=== PATIENT | male | born 1970 | race Caucasian/White ===

== ENCOUNTER → 2018-03-28 01:24 | Outpatient (CLI) | payer BC, SELFPAY ==
--- NOTE | 2018-03-28 07:58 | DI.REPORT_ITS ---
SYMPTOM/DIAGNOSIS: MUSCLE WEAKNESS OF EXTREMITY, M62.81, HEADACHE, EARACHE, FATIGUE BRAIN MRI: Routine noncontrast examination was performed. Comparison MRI is 05/20/05. Comparison CT scan is 02/01/15. There is normal signal in the brain parenchyma. No evidence of an acute hemorrhage or infarct is seen. The ventricles are intact. The basilar cisterns are patent. There is no acute midline shift or mass effect. No abnormal extra-axial fluid collections are seen. There is a flow void seen in the [place]. The visualized paranasal sinuses are clear. Note is again made of an empty sella. IMPRESSION: No acute intracranial process. No evidence of an intracranial mass, hemorrhage or infarct.
== END ==
PROVIDERS: PCP Family Medicine; Visit Provider Nurse Practitioner Family
DX: R51 Headache (principal); H92.09 Otalgia, unspecified ear; M62.81 Muscle weakness (generalized); R53.83 Other fatigue
CPT/HCPCS: 70551

== ENCOUNTER 2018-09-19 07:13 | Outpatient (CLI) | payer BC, SELFPAY ==
[2018-09-19 08:08] LABS: Abs Immature Grans 0.01 k/cumm (0.0-0.09); Absolute Basophil Count 0.04 k/cumm (0.0-0.2); Absolute Neutrophil Count 2.16 k/cumm (1.2-6.7); Eosinophils % 2.4; HCT 44.3 % (40.0-50.0); HGB 14.9 g/dL (13.5-17.5); Immature Grans % 0.2; Lymphocytes % 35.6; Mean Corp. HGB Concentration 33.6 g/dL (32.0-36.0); Mean Corpuscular Hemoglobin 28.3 pg (27.0-33.0); Mean Corpuscular Volume 84.2 fL (80-95); Mean Platelet Volume 10.2 fL (8.0-11.0); Monocytes % 9.5; Neutrophils % 51.3; Platelet Count 238 x1000/uL (130-400); RBC 5.26 m/cumm (4.50-6.00); RBC Distribution Width 13.2 % (11.8-14.1); White Blood Cell Count 4.21 k/cumm (4.4-10.8)
[2018-09-19 09:03] LABS: ALT 25 U/L (12-78); AST 16 U/L (15-37); Albumin 3.5 g/dL (3.4-5.0); Alkaline Phosphatase 54 U/L (46-116); Anion Gap 8.5 mmol/L (3-11); BUN 12 mg/dL (7-18); Bilirubin, Total 0.3 mg/dL (0.2-1.0); CO2 28.5 mmol/L (21.0-32.0); CREATININE 0.87 mg/dL (0.70-1.30); Chloride 106 mmol/L (98-107); Glucose 92 mg/dL (70-100); Potassium 4.3 mmol/L (3.5-5.1); Sodium 143 mmol/L (136-145)
== END 2018-09-19 07:33 ==
PROVIDERS: PCP Family Medicine; Visit Provider Internal Medicine Gastroenterology
DX: R19.7 Diarrhea, unspecified (principal)
CPT/HCPCS: 36415; 80053; 84153; 85025

== ENCOUNTER 2018-09-20 09:15 | Outpatient (REF) | payer BC, SELFPAY ==
[2018-09-21 11:35] LABS: Campylobacter PCR SEE COMMENTS; Salmonella PCR SEE COMMENTS; Shiga Toxin PCR SEE COMMENTS; Shigella/Enteroinvasive Ecoli SEE COMMENTS
== END 2018-09-20 09:35 ==
LOC: LBN 09:15
PROVIDERS: PCP Family Medicine; Visit Provider Internal Medicine Gastroenterology
DX: R19.7 Diarrhea, unspecified (principal)
CPT/HCPCS: 87329; 87505; 87324

== ENCOUNTER 2019-09-26 17:56 | Emergency (ER) | payer BC, SELFPAY ==
[2019-09-26 18:03] VITALS: BP 150/103; PULSE 96; RESP 18; TEMP 37.5; O2SAT 96
--- NOTE | 2019-09-26 18:04 | ED.GENADUL_ITS ---
Discharge Plan Disposition Patient Disposition: HOME Condition: Good Discharge Details Chief Complaint: RespSymp Clinical Impression: Influenza Primary Care Provider: Ozzie Santos ED Provider: Naye Pak Home Meds and New Rx's Prescriptions: New benzonatate [Tessalon Perles] 100 mg capsule 100 mg PO TID PRN (Reason: cough) Qty: 14 RF: 0 Continued finasteride 5 MG tablet 5 mg PO DAILY Qty: 90 RF: 4 tamsulosin [Flomax] 0.4 MG capsule 0.4 mg PO DAILY RF: 0 ranitidine HCl [Zantac Maximum Strength] 150 MG tablet 150 mg PO BID RF: 0 fluticasone propionate 16 GM spray,suspension 2 spry NS BID Qty: 3 RF: 12 acetaminophen [Tylenol Extra Strength] 500 MG tablet 1,000 mg PO PRN PRNRF: 0 omeprazole 40 MG capsule,delayed release(DR/EC) 40 mg PO .QD Qty: 20 RF: 0 Discharge Instructions Instructions: Influenza (ED) Additional Instructions: Encourage water intake. Tylenol and ibuprofen as needed for discomfort or fevers. Please take the Tessalon Perles as prescribed to help with cough. Please follow-up with primary care at the end of the week for reevaluation. If you develop difficulty breathing, shortness of breath, inability stay hydrated or other new/worsening symptoms please seek care urgently once again. Referrals: Ozzie Santos [Primary Care Provider] - Discharge Data Discharge Date/Time-TO BE ENTERED AT DEPARTURE: 09/26/19 19:55 Medical Decision Making Patient is a pleasant 49-year-old gentleman, coming by his , with chief complaint of sudden onset of URI symptoms. He reports that for the past 3 days, he has had cough, fevers, body aches. Endorses sore throat, congestion. No difficulty breathing or shortness of breath. Denies chest pain. He denies any GI upset. Endorses subjective fevers and chills. No recent travel. No known sick contacts. On exam, patient is resting comfortably. Appears well-hydrated. Lungs are clear, there is some mild posterior oropharynx erythema but no significant abnormality of the HEENT exam. His history is most consistent with influenza. Plan for rapid influenza testing. Patient was negative for the flu. However, symptoms very much suggest influenza. As he is out of window for treatment, is not otherwise immunocompromised, do not feel that further testing for this is appropriate. He is tolerating fluids well. Feel that he is safe for discharge. Lungs are clear on exam. Will give Tessalon Perles to help with cough and symptomatic managem ent. He was given strict return precautions. Encouraged water intake. Advise close follow-up with primary care. All his questions and concerns were addressed and significant with plan. HPI General Mode of arrival: ambulatory . Date/Time Provider Initiated Documentation: 09/26/19 18:04 . Limitations to Documentation: no limitations . Information obtained by: patient, family () and RN notes reviewed . History of Present Illness 49 year old M presents to the emergency department with the chief complaint of cough, body aches, fevers, described as moderate, with intensity rated at 4. Quality is described as aching, Patient reports no radiation. Patient started experiencing this day(s) (3) and it has been constant. No relieving factors improve symptom(s), No exacerbating factors reported . Patient notes cough, fever/chills and loss of appetite; denies chest pain, diaphoresis, headaches, nausea/vomiting, rash, shortness of breath and weakness. Patient did receive the following treatments prior to arrival, none Related Data Home Medications Medication Instructions Recorded Confirmed acetaminophen [Tylenol Extra 1,000 mg PO PRN PRN 09/11/17 09/28/19 Strength] omeprazole 40 mg PO .QD #20 capsule. 09/11/17 09/28/19 finasteride 5 mg PO DAILY #90 tab-cap 09/30/17 09/28/19 fluticasone propionate 2 spry NS BID #3 bottle 12/07/17 09/28/19 ranitidine HCl [Zantac Maximum 150 mg PO BID 12/07/17 09/28/19 Strength] tamsulosin [Flomax] 0.4 mg PO DAILY 12/07/17 09/28/19 benzonatate [Tessalon Perles] 100 mg PO TID PRN #14 cap 09/26/19 09/28/19 Previous Rx's Medication Instructions Recorded omeprazole 40 mg PO .QD #20 capsule. 09/11/17 finasteride 5 mg PO DAILY #90 tab-cap 09/30/17 fluticasone propionate 2 spry NS BID #3 bottle 12/07/17 benzonatate [Tessalon Perles] 100 mg PO TID PRN #14 cap 09/26/19 Allergies Allergy/AdvReac Type Severity Reaction Status Date / Time Iodinated Contrast Media Allergy Intermediate Hives Unverified 09/28/19 10:09 [Iodinated Contrast Media - IV Dye] Review of Systems Constitutional Constitutional: Reports as per HPI and Denies headache(s) Eyes Eyes: Reports as per HPI, Denies eye discharge and Denies irritation ENT Ears, Nose, Mouth, and Throat: Reports as per HPI and Denies headache(s) Cardiovascular Cardiovascular: Reports as per HPI, Denies chest pain and Denies dyspnea Respiratory Respiratory: Reports as per HPI and Denies dyspnea Gastrointestinal Gastrointestinal: Reports as per HPI, Denies abdominal pain, Denies change in bowel habits, Denies nausea and Denies vomiting Integumentary/Breasts Skin/Breast: Reports as per HPI and Denies rash Neurologic Neurologic: Reports as per HPI and Denies headache(s) [facility] Medical History (Updated 09/26/19 @ 19:43 by DELIA Vazquez) Depression History of gastroesophageal reflux (GERD) Irritable bowel Myoclonus Surgical History (Updated 09/19/17 @ 13:53 by Kasandra Byrd) EGD - MAC (09/16/17) Social History Smoking/Tobacco Use Status: Never Alcohol Intake: current Alcohol Intake frequency: a few times a week Drug use: Never Substance use type: does not use Do you feel safe at home: Yes Do you feel safe in your relationship?: Yes Exam Const General: cooperative, healthy appearing, comfortable, no acute distress, well developed and well groomed Nutritional Appearance: average body habitus and well nourished Orientation: alert and awake [facility] Head: normal to inspection, normocephalic and atraumatic Ears: hearing grossly normal bilaterally, external ears normal and TM's normal bilaterally General nose exam: external nose normal and nares normal Face and sinus: normal facial exam, sinuses nontender and face symmetric Mouth: oral mucosae normal, lip normal, tongue normal, oropharynx normal and moist mucous membranes Teeth and gingiva: dentition normal Throat: posterior oropharynx normal, tonsils normal and uvula midline Eyes General: appearance normal, both eyes and all related structures Neck Neck: normal visual inspection, full ROM, no lymphadenopathy and no meningeal signs Resp Effort & Inspection: normal respiratory effort, able to speak in complete sentences and no respiratory distress Auscultation: clear to auscultation bilaterally, no rales, no rhonchi and no wheezes Cardio Rate: regular rate Rhythm: regular rhythm Heart Sounds: S1 normal and S2 normal Skin General skin exam: no rashes or lesions noted Neuro General: alert and awake Cognition: normal cognition Speech: speech normal Gait: normal gait Psych Appearance: grossly normal and well kempt Mental Status: mental status grossly normal Speech and Movement: speech and movement normal
--- NOTE | 2019-09-26 19:19 | NUR.NOTE ---
Nursing Note: Patient updated on reason for wait
[2019-09-26 19:57] VITALS: BP 139/102; PULSE 62; RESP 16; TEMP 37.5; O2SAT 97
== END 2019-09-26 19:55 | disposition home or self-care (01) ==
PROVIDERS: Emergency Provider Physician Assistant; PCP Family Medicine
DX: J11.1 Influenza due to unidentified influenza virus with other respiratory manifestations (principal)
CPT/HCPCS: 87449; 99283

== ENCOUNTER 2019-09-30 21:05 | Emergency (ER) | payer BC, SELFPAY ==
[2019-09-30] VITALS (13 sets, daily range): BP systolic 99–159; BP diastolic 73–92; PULSE 86–117; RESP 16–20; TEMP 36.5–37.6; O2SAT 94–100
--- NOTE | 2019-09-30 21:22 | W.ED.GENAD ---
Discharge Plan Disposition Patient Disposition: HOME Condition: Improving Discharge Details Chief Complaint: RespSymp Clinical Impression: Influenza, Community acquired pneumonia Primary Care Provider: Ozzie Santos ED Provider: Navjot Osei Home Meds and New Rx's Prescriptions: New amoxicillin-pot clavulanate [Augmentin] 875-125 mg tablet 1 tab PO BID Qty: 20 RF: 0 doxycycline hyclate 100 mg tablet 100 mg PO BID Qty: 20 RF: 0 No Action finasteride 5 MG tablet 5 mg PO DAILY Qty: 90 RF: 4 tamsulosin [Flomax] 0.4 MG capsule 0.4 mg PO DAILY RF: 0 ranitidine HCl [Zantac Maximum Strength] 150 MG tablet 150 mg PO BID RF: 0 fluticasone propionate 16 GM spray,suspension 2 spry NS BID Qty: 3 RF: 12 acetaminophen [Tylenol Extra Strength] 500 MG tablet 1,000 mg PO PRN PRNRF: 0 omeprazole 40 MG capsule,delayed release(DR/EC) 40 mg PO .QD Qty: 20 RF: 0 benzonatate [Tessalon Perles] 100 mg capsule 100 mg PO TID PRN (Reason: cough) Qty: 14 RF: 0 Discharge Instructions Instructions: Influenza (ED), Community Acquired Pneumonia (ED) Additional Instructions: You have unfortunately both influenza and pneumonia. Please take the antibiotics as directed. Please drink 10 to 12 cups of water per day. Can take 1000 mg of Tylenol every 6 hours and 600 mg of ibuprofen every 6 hours to help with the aches and pains. If you notice any worsening of your symptoms, or any new symptoms such as vomiting, diarrhea, fever, chills, shortness of breath, chest pain, numbness, weakness, or fainting , please return immediately to the emergency department for reevaluation. Please follow up with your primary care provider as soon as possible for reassessment and reevaluation. As always, it was a pleasure participating in your medical care today. Referrals: Ozzie Santos [Primary Care Provider] - Medical Decision Making 49-year-old male with a past medical history of GERD, irritable bowel syndrome, who presents today for evaluation of cough congestion shortness of breath. Patient was seen and assessed here 4 days ago, with signs and symptoms concerning for influenza. Rapid flu testing was negative. Discharged home as he was notably stable at that time. He presents again today for symptoms that have been notably worsening. He continues to have myalgias, cough, intermittent fever, chills, and he has now developed mild shortness of breath with his cough. He denies any significant chest pain aside from when coughing. Entirety of his symptoms have been present for 1 week. He denies any significant headache or neck pain. He denies vomiting or diarrhea. He has been able to eat and drink. He has no other complaints at this time. He denies any other modifying factors. He denies not smoke, vape, or history of lung disease. The patient denies any recent foreign travel or contact with recent immigrants, Travelers, or peoples of [place] or [facility]. Physical exam demonstrates tachycardia but no hypoxemia. No other significant abnormalities. Bedside ultrasound was performed, limited exam does show notable B-lines and consolidation in the right lower lung field, minimal B-lines in the left lower. This is certainly concerning for pneumonia and infiltrate. No significant pericardial effusion. He does have a minimal pericardial fat pad. We will rehydrate the patient, get a formal chest x-ray, evaluate for significant laboratory abnormality, and reassess. Suspect pneumonia in conjunction with flulike illness. We will retest for influenza. He has no history of foreign travel, does not have CDC recommended risk factors for coronavirus of [place] origin. We will continue to monitor closely. 10 PM X-ray results confirm evidence of patchy opacity in the right lung base. Concerning for pneumonia. Laboratory work-up shows no white count, no bandemia. VBG stable. Electrolytes stable. Lactate is elevated at 2.4. Will add blood cultures and redraw. Influenza has also returned positive, which was a change from his prior assessment 3 days ago. Troponin and EKG are unchanged. We will continue to monitor. We did get the patient up and ambulate him he did very well, no hypoxemia, no lightheadedness or dizziness, curb 65 score is 0 and port score is 60 points with risk class II with a 0.6 to 0.9% mortality with recommended outpatient treatment being reasonable. We will continue to monitor, and reassess. I feel he is likely a good candidate for discharge. 11:56 PM Patient has received his fluids, repeat lactate is well within normal limits at 1, vital signs of notably improved, patient's tachycardia has resolved, he is got up and ambulate to the bathroom and did very well. He is feeling better. I did discuss admission/observation versus discharge, at this time through shared decision making process, patient has elected to be discharged home. Additionally we did talk about Tamiflu, and since he is with a week of symptoms at this point, weighing the risks and benefits the patient has decided to hold off on Tamiflu. We will treat with antibiotics for his pneumonia though. We will give Augmentin and doxycycline. With the patient's notable clinical improvement, I do feel that he is stable for discharge with close follow-up. Discussed red flags which to return. I have extensively reviewed the treatment plan and discharge instructions with the patient. I have addressed all patient concerns at this time. The patient was made aware of what symptoms to monitor for that would warrant a return to the emergency department. Discussed the plan with the patient, they demonstrate verbal understanding and agreement with our assessment and plan at this time. Antibiotic choice: We have chosen to give Augmentin here for the patient's pneumonia. Recent resistant pattern studies from our hospital as well as other local facilities including [facility] have both demonstrated significant resistance to azithromycin, and notable susceptibility to common community-acquired pneumonia organisms for both amoxicillin, and Augmentin. EKG 21: 21 Rate 101, W[place] 144, QTc 428, QRS 98, sinus tachycardia, no significant to him stoning, he has less than [address] elevation in V1 and V2, no T wave inversions or reciprocal ST depression. Minimal unchanged Q waves in lead II, III, and aVF. Review of prior EKG from 06/02/2016 demonstrates identical findings. Including previous Q waves in 2 3 and aVF. FINDINGS: Lungs: A patchy opacity in the right lung base is new since the prior study and concerning for pneumonia. Pleural space: Trace effusion, laterality uncertain, seen on lateral imaging only. No pneumothorax. Heart/Mediastinum: No cardiomegaly. Bones/joints: No acute fracture. IMPRESSION: 1. A patchy opacity in the right lung base is new since the prior study and concerning for pneumonia. 2. Trace effusion, presumably right-sided. Thank you for allowing us to participate in the care of your patient. Dictated and Authenticated by: Amanda Ulloa MD 09/30/2019 9:43 PM Eastern Time ([place] & [place]) HPI General Date/Time Provider Initiated Documentation: 09/30/19 21:08. HPI Narrative: 49-year-old male with a past medical history of GERD, irritable bowel syndrome, who presents today for evaluation of cough congestion shortness of breath. Patient was seen and assessed here 4 days ago, with signs and symptoms concerning for influenza. Rapid flu testing was negative. Discharged home as he was notably stable at that time. He presents again today for symptoms that have been notably worsening. He continues to have myalgias, cough, intermittent fever, chills, and he has now developed mild shortness of breath with his cough. He denies any significant chest pain aside from when coughing. Entirety of his symptoms have been present for 1 week. He denies any significant headache or neck pain. He denies vomiting or diarrhea. He has been able to eat and drink. He has no other complaints at this time. He denies any other modifying factors. He denies not smoke, vape, or history of lung disease. The patient denies any recent foreign travel or contact with recent immigrants, Travelers, or peoples of [place] or [facility]. Related Data Home Medications Medication Instructions Recorded Confirmed acetaminophen [Tylenol Extra 1,000 mg PO PRN PRN 09/11/17 09/28/19 Strength] omeprazole 40 mg PO .QD #20 capsule. 09/11/17 09/28/19 finasteride 5 mg PO DAILY #90 tab-cap 09/30/17 09/28/19 fluticasone propionate 2 spry NS BID #3 bottle 12/07/17 09/28/19 ranitidine HCl [Zantac Maximum 150 mg PO BID 12/07/17 09/28/19 Strength] tamsulosin [Flomax] 0.4 mg PO DAILY 12/07/17 09/28/19 benzonatate [Tessalon Perles] 100 mg PO TID PRN #14 cap 09/26/19 09/28/19 amoxicillin-pot clavulanate 1 tab PO BID #20 tab 09/30/19 [Augmentin] doxycycline hyclate 100 mg PO BID #20 tab 09/30/19 Previous Rx's Medication Instructions Recorded omeprazole 40 mg PO .QD #20 capsule. 09/11/17 finasteride 5 mg PO DAILY #90 tab-cap 09/30/17 fluticasone propionate 2 spry NS BID #3 bottle 12/07/17 benzonatate [Tessalon Perles] 100 mg PO TID PRN #14 cap 09/26/19 amoxicillin-pot clavulanate 1 tab PO BID #20 tab 09/30/19 [Augmentin] doxycycline hyclate 100 mg PO BID #20 tab 09/30/19 Allergies Allergy/AdvReac Type Severity Reaction Status Date / Time Iodinated Contrast Media Allergy Intermediate Hives Unverified 09/30/19 21:15 [Iodinated Contrast Media - IV Dye] General Stated Complaint: RespSymp ANN: 4 Review of Systems All systems reviewed & are unremarkable except as noted in HPI and below PFSH Medical History (Updated 09/30/19 @ 23:54 by Navjot Osei DO) Depression History of gastroesophageal reflux (GERD) Irritable bowel Myoclonus Surgical History (Updated 09/19/17 @ 13:53 by Kasandra Byrd) EGD - MAC (09/16/17) Social History Smoking/Tobacco Use Status: Never Alcohol Intake: current Alcohol Intake frequency: a few times a week Drug use: Never Substance use type: does not use Do you feel safe at home: Yes Do you feel safe in your relationship?: Yes Exam Narrative Exam Narrative: 1.Const: Well-nourished, Well-developed, appearing stated age 2.Eyes: PERRL, no conjunctival injection, and symmetrical lids. 3.ENT: Atraumatic external nose and ears. Moist MM. Neck: Symmetric, trachea midline, No thyromegaly. Patient demonstrates good movement of cervical neck. There is no nuchal rigidity, no nuchal tenderness. Patient is able to flex the neck without any difficulty or significant pain. Negative Kernig's and Brudzinski sign. 4.CVS: +S1/S2, No murmurs or gallops. Peripheral pulses 2+ and equal in all extremities. Brisk capillary refill in all extremities. 5.RESP: Unlabored respiratory effort. Clear to auscultation bilaterally. No wheezes rales or rhonchi 6.GI: Soft, Nontender/Nondistended, No hepatosplenomegaly. No guarding or rebound. 7.MSK: Normocephalic/Atraumatic, Extremities w/o deformity or ttp No cyanosis or clubbing, Normal movement of all extremities 8.Skin: Warm, Dry. No rashes or lesions. 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 Sensation grossly intact, no focal neurologic deficits. 10.Psych: (AAO) x3. Appropriate mood and affect Course Vital Signs Vital signs: Vital Signs Temperature 36.5 C 09/30/19 21:09 Pulse 117 H 09/30/19 21:09 Respiratory Rate 20 09/30/19 21:09 Blood Pressure 159/92 H 09/30/19 21:09 Pulse Oximetry 100 09/30/19 21:09 Temperature 36.5 C 09/30/19 21:09 Temperature Source Skin 09/30/19 21:09 Pulse 117 H 09/30/19 21:09 Respiratory Rate 20 09/30/19 21:09 Respiratory Effort 09/30/19 21:14 Blood Pressure 159/92 H 09/30/19 21:09 Pulse Oximetry 100 09/30/19 21:09 Oxygen Delivery Method Room Air 09/30/19 21:09 Oxygen Flow Rate 0 09/30/19 21:09 Pain Level 3 09/30/19 21:09
[2019-09-30] MEDS: Normal Saline 1,000 ML 1000 ML IV ×2 (21:25→22:36)
--- NOTE | 2019-09-30 21:30 | DI.RAD_ITS ---
EXAM: XR CHEST 2V PA LATERAL INDICATION: cough, sob, see pneumonia on [place] in RLL. COMPARISON: CHEST 2 VIEWS PA,LAT from 10/06/2017 TECHNIQUE: 2D digital imaging was performed. FINDINGS: Heart size is normal. There is a streaky opacity seen at the left lung base which could represent a telectasis versus pneumonia. Remainder of the lung galloway appear clear. IMPRESSION: Question of left lower lobe infiltrate versus atelectasis. DATA REPOSITORY: RADIATION DOSE DELIVERED:
[2019-09-30 21:32] LABS: Abs Immature Grans 0.01 k/cumm (0.0-0.09); Absolute Basophil Count 0.01 k/cumm (0.0-0.2); Absolute Lymphocyte Count 0.57 k/cumm (1.2-3.4); Absolute Monocyte Count 0.46 k/cumm (0.11-0.7); Absolute Neutrophil Count 3.62 k/cumm (1.2-6.7); Basophils % 0.2; HCT 45.4 % (40.0-50.0); HGB 15.8 g/dL (13.5-17.5); Immature Grans % 0.2 %; Lymphocytes % 12.2; Mean Corp. HGB Concentration 34.8 g/dL (32.0-36.0); Mean Corpuscular Hemoglobin 29.4 pg (27.0-33.0); Mean Corpuscular Volume 84.5 fL (80-95); Mean Platelet Volume 9.9 fL (8.0-11.0); Monocytes % 9.9; Neutrophils % 77.5; Platelet Count 164 x1000/uL (130-400); RBC 5.37 m/cumm (4.50-6.00); RBC Distribution Width 13.5 % (11.8-14.1); White Blood Cell Count 4.67 k/cumm (4.4-10.8)
[2019-09-30 21:34] LABS: BE (Venous) -3.4 mmol/L (-3-3); HCO3 (Venous) 21 mmol/L (22-28); O2 Sat (Venous) 98 % (70-80); TCO2 (Venous) 18 mmol/L (22-29); pCO2 (Venous) 31 mm/Hg (34-47); pH (Venous) 7.43 (7.35-7.45); pO2 (Venous) 91 mm/Hg (28-44)
[2019-09-30 21:36] LABS: Lactate 2.4 mmol/L (0.6-1.4)
--- NOTE | 2019-09-30 21:44 | DI.VRAD_ITS ---
PROCEDURE INFORMATION: Exam: XR Chest, 2 Views Exam date and time: 09/30/2019 21:30 Age: 49 years old Clinical indication: Cough and shortness of breath; Patient HX: SOB, cough for a week, pneumonia seen in rll on US TECHNIQUE: Imaging protocol: XR of the chest Views: 2 views. COMPARISON: CR CHEST 2 VIEWS PA,LAT 10/06/2017 08:33 FINDINGS: Lungs: A patchy opacity in the right lung base is new since the prior study and concerning for pneumonia. Pleural space: Trace effusion, laterality uncertain, seen on lateral imaging only. No pneumothorax. Heart/Mediastinum: No cardiomegaly. Bones/joints: No acute fracture. IMPRESSION: 1. A patchy opacity in the right lung base is new since the prior study and concerning for pneumonia. 2. Trace effusion, presumably right-sided. Dictated and Authenticated by: Amanda Ulloa MD. Ordering:DENNY Morfin MD
[2019-09-30 21:56] LABS: ALT 51 U/L (16-63); AST 32 U/L (15-37); Albumin 3.8 g/dL (3.4-5.0); Alkaline Phosphatase 58 U/L (46-116); Anion Gap 12.9 mmol/L (3-11); BUN 10 mg/dL (7-18); Bilirubin, Total 0.3 mg/dL (0.2-1.0); CO2 22.1 mmol/L (21.0-32.0); CREATININE 1.09 mg/dL (0.70-1.30); Calcium 8.5 mg/dL (8.5-10.1); Chloride 104 mmol/L (98-107); Glucose 138 mg/dL (74-106); NT-proBNP 37 pg/mL (<300); Potassium 3.5 mmol/L (3.5-5.1); Sodium 139 mmol/L (136-145); Total Protein 7.5 g/dL (6.4-8.2); Troponin I < 0.05 ng/Ml (<0.06)
--- NOTE | 2019-09-30 22:25 | NUR.NOTE ---
Nursing Note: Lab at bedside for blood cultures
[2019-09-30] MEDS: cefTRIAXone 2 GM/50 ML BAG IVPB (22:38)
[2019-09-30] MEDS: Ketorolac 30 MG/ML VIAL IVP (23:05)
--- NOTE | 2019-09-30 23:08 | NUR.NOTE ---
Nursing Note: Pt up to bathroom. ambulates without difficulty. Gait steady.
[2019-09-30] MEDS: DOXYCYCLINE 100 MG in Normal Saline 100 ML IVPB (23:14)
--- NOTE | 2019-09-30 23:39 | NUR.NOTE ---
Nursing Note: Repeat Lactic drawn and sent to lab
[2019-10-01] VITALS: O2SAT 94
[2019-10-01 00:01] VITALS: BP 119/73; PULSE 86; O2SAT 95
[2019-10-01] MEDS: Amox. 875/Clav. 125, 2 TABS/BTL 1 TAB PO (00:02)
[2019-10-01] MEDS: Doxycycline Hyclate 100 MG, 2 CAPS/BTL PO (00:02)
[2019-10-01 00:10] VITALS: BP 119/73; PULSE 86; RESP 16; O2SAT 95
== END 2019-10-01 00:15 | disposition home or self-care (01) ==
PROVIDERS: Emergency Provider Student in an Organized Health Care Education/Training Program; PCP Family Medicine
DX: J10.00 Influenza due to other identified influenza virus with unspecified type of pneumonia (principal); R06.02 Shortness of breath; R50.9 Fever, unspecified
CPT/HCPCS: 36410; 36415; 80053; 82805; 87040; 87449; 93005; 96361; 96365; 96367; 99285; 71046; 83605; 83880; 84484; 85025; 93010; J1885

== ENCOUNTER 2020-04-21 01:53 | Outpatient (CLI) | payer BC, SELFPAY ==
[2020-04-21 07:58] LABS: Abs Immature Grans 0.02 10^3/uL (0.0-0.06); Absolute Basophil Count 0.04 10^3/uL (0.0-0.2); Absolute Eosinophil Count 0.08 10^3/uL (0.0-0.7); Absolute Lymphocyte Count 1.88 10^3/uL (1.2-3.4); Absolute Monocyte Count 0.52 10^3/uL (0.1-0.8); Absolute Neutrophil Count 3.25 10^3/uL (1.2-6.7); Basophils % 0.7; Eosinophils % 1.4; HCT 44.7 % (40.0-50.0); HGB 14.9 g/dL (13.5-17.5); Immature Grans % 0.3; Lymphocytes % 32.5; MCH 29.3 pg (27.0-33.0); MCHC 33.3 % (32.0-36.0); MCV 87.8 fL (80-95); MPV 10.2 fL (8.0-11.0); Neutrophils % 56.1; Nucleated RBC 0 %; Platelet Count 218 10^3/uL (130-400); RBC 5.09 10^6/uL (4.36-5.78); RDW 13.7 % (11.8-14.1); RDW-SD 44.3 fL; WBC 5.79 10^3/uL (4.4-10.8)
[2020-04-21 09:04] LABS: ALT 41 U/L (16-63); AST 22 U/L (15-37); Albumin 3.9 g/dL (3.4-5.0); Alkaline Phosphatase 40 U/L (46-116); Anion Gap 8.9 mmol/L (3-11); BUN 13 mg/dL (7-18); Bilirubin, Total 0.7 mg/dL (0.2-1.0); CO2 25.1 mmol/L (21.0-32.0); CREATININE 1.02 mg/dL (0.70-1.30); Calcium 8.9 mg/dL (8.5-10.1); Calculated LDL 150 mg/dL (<100); Chloride 107 mmol/L (98-107); Cholesterol 234 mg/dL (<200); Glucose 98 mg/dL (74-106); HDL Cholesterol 44 mg/dL (40-60); Potassium 3.6 mmol/L (3.5-5.1); Sodium 141 mmol/L (136-145); TSH (W/Ref FT4) 2.29 uIU/mL (0.36-3.74); Total Protein 6.8 g/dL (6.4-8.2); Triglyceride 201 mg/dL (<150)
== END 2020-04-21 02:13 ==
PROVIDERS: PCP Family Medicine; Visit Provider Family Medicine
DX: R42 Dizziness and giddiness (principal); R06.00 Dyspnea, unspecified; R03.0 Elevated blood-pressure reading, without diagnosis of hypertension; G47.33 Obstructive sleep apnea (adult) (pediatric)
CPT/HCPCS: 36415; 80053; 80061; 84443; 85025

== ENCOUNTER 2020-04-23 03:30 | Outpatient (CLI) | payer BC, SELFPAY | END 2020-04-23 03:50 | PROVIDERS: PCP Family Medicine; Visit Provider Family Medicine | CPT/HCPCS: 93225 ==

== ENCOUNTER 2020-04-25 09:55 | Outpatient (CLI) | payer BC, SELFPAY | END 2020-04-25 10:15 | PROVIDERS: PCP Family Medicine; Visit Provider Family Medicine | DX: R55 Syncope and collapse (principal) | CPT/HCPCS: 93226 ==

== ENCOUNTER 2020-04-28 02:01 | Outpatient (CLI) | payer BC, SELFPAY ==
--- NOTE | 2020-04-25 10:17 | W.HOLTRPT ---
Date of service: 04/25/20 Time of Service: 10:17 Holter Monitor Report Referring Provider:: Not stated Indications:: Not stated Holter Monitor Note: This is a 48-hour Holter monitor ordered for the indication: None stated ?Patient was in normal sinus rhythm for majority recording with an average heart rate of 80 bpm. ?Patient no episodes of ventricular tachycardia nor any of supraventricular tachycardia. ?There were 3 total PACs and 28 total PVCs. ?There were no episodes of atrial fibrillation, no pauses in 3 seconds no evidence of high degree heart block.
--- NOTE | 2020-04-28 13:50 | DI.US_ITS ---
APPROVED REPORT EXAM: Comprehensive 2D, Doppler, and color-flow Echocardiogram Patient Location: Out-Patient Exercise Physiologist Certified: Melodie Restrepo RDCS (AE) Indications: Syncope Other Information Study Quality: Good Conclusion Left Ventricle : The left ventricle is normal size. The left ventricular systolic function is normal. The left ventricular ejection fraction is within the normal range. There is normal left ventricular wall thickness. There is normal LV segmental wall motion. The left ventricular diastolic function is normal. LVEF is 60%. Right Ventricle : The right ventricle is normal size. The right ventricular systolic function is norm al. Atria : The left atrium size is normal. The right atrium size is normal. Valves: There are no hemodynamically significant valvular lesions. Great Vessels : The aortic root is normal in size. The ascending aorta is mildly dilated. Aortic arch is normal in caliber. IVC is normal in size and collapses >50% with inspiration. Please see remainder of study for further details. Wall motion Left Ventricle The left ventricle is normal size. The left ventricular systolic function is normal. The left ventric ular ejection fraction is within the normal range. There is normal left ventricular wall thickness. T here is normal LV segmental wall motion. The left ventricular diastolic function is normal. There is no ventricular septal defect visualized. LVEF is 60%. Right Ventricle The right ventricle is normal size. The right ventricular systolic function is normal. Atria The left atrium size is normal. The right atrium size is normal. The interatrial septum is intact wit h no evidence for an atrial septal defect. Aortic Valve The aortic valve is normal in structure. Aortic valve is trileaflet. There is no aortic valvular sten osis. No aortic regurgitation is present. Mitral Valve The mitral valve is normal in structure. No evidence of mitral valve stenosis. Mild mitral regurgitat ion. Tricuspid Valve The tricuspid valve is normal in structure. There is no tricuspid valve stenosis. Trace tricuspid reg urgitation. Unable to assess PA pressure. Pulmonic Valve The pulmonary valve is normal in structure. There is no pulmonic valvular stenosis. Trace pulmonic re gurgitation. Great Vessels The aortic root is normal in size. The ascending aorta is mildly dilated. Aortic arch is normal in ca liber. IVC is normal in size and collapses >50% with inspiration. Pericardium There is no pericardial effusion. 2D Dimensions IVSD d PLAX 0.80 cm M: 0.6-1.2 LV Vol A2C d MOD 107.3 mL LVPW d PLAX 0.82 cm M: 0.6 - 1.2 LV Vol A4C d MOD 107.3 mL LVID d PLAX 5.26 cm M: 4.2 - 5.8 LA vol/ BSA A2C s A-L 26.7 mL/m2 LVDs 3.35 cm M: 2.5 - 4.0 LA vol/ BSA A4C s A-L 27.4 mL/m2 Ao Root d 2.84 cm M: 3.1 - 3.7 LA Vol/ BSA Biplane s A-L 27.4 mL/m2 RA Area A4C 14.52 cm2 LA Area A4C s MOD 19.49 cm2 RA Vol/ BSA A4C s A-L 18.1 mL/m2 LA Area A2C s MOD 19.03 cm2 Ao Asc Diam d 3.54 cm M: 2.6 - 3.4 LV EF A4C MOD 59.4 % LV EF Teichholz 64.9 % LV EF A2C MOD 57.4 % LVEF (Galicia's) 56.46 % M: 52 - 72 LV EF Biplane MOD 56.5 % LV Volume 80.88 mL M: 62 - 150 SV 61.32 mL LV Volume Index 39.64 mL/m2 M: 34 - 74 SV Index 30.00 mL/m2 LV Vol Biplane MOD 108.6 mL FS 35.75 % M-Mode TAPSE 2.02 cm (M/F) >1.7 LV Diastology MV E' medial 0.139 (>0.07 m/s) E/A Ratio 1.1 LV E/e MED 4.60 (<14) MV E Vmax 0.64 (0.4-1.3 m/s) MV E' lateral 0.119 (>0.1 m/s) MV A Vmax 0.60 (0.4-1.3 m/s) LV E/e LAT 5.40 (<14) MV E/A Ratio 1.02 MV E/E' medial 4.62 MV E/E' lateral 5.43 Aortic Valve LVOT Area 3.65 cm2 AoV Area Vmax 2.88 cm2 LVOT Vmax 1.12 m/s AoV Area/ BSA (Vmax) 1.41 cm2/m2 LVOT Mean Ron. 0.72 m/s LUC Mean Ron. 2.69 cm2 LVOT Peak Grad 5.1 mmHg LUC Mean Ron. Index 1.32 cm2/m2 LVOT Mean Grad 2.5 mmHg LVOT VTI 0.246 m LVOT Diam s 2.15 cm AoV Vmax 1.43 m/s Velocity Ratio 0.78 AoV Mean Ron. 0.97 m/s AoV Peak Grad 8.2 mmHg LVOT SV 89.68 mL AoV Mean Grad 4.3 mmHg AoV VTI 0.286 m AoV Area VTI 3.13 cm2 AoV Area/ BSA (VTI) 1.53 cm/m2 Mitral Valve MV DT 138 (160-240 msec) MR Vmax 5.26 m/s MV PHT 40 msec MR VTI 1.585 m MV Area PHT 5.49 cm2 MR Peak Grad 110.5 mmHg MV VTI 0.233 m MR Mean Grad 81.6 mmHg MV VTI Annulus 0.248 m MR PISA Radius 0.30 cm MV Area VTI 4.12 (4.0-6.0 cm2) MR EROA 0.04 cm2 MR Aliasing Velocity 0.35 m/s MR PISA 0.58 cm2 Pulmonary Valve PV Vmax 1.15 (0.5-1.5 m/s) RVOT Peak Gr. 2.98 mmHg PV Peak Grad 5.3 mmHg RVOT Mean Gr. 1.40 mmHg PV Mean Grad 3.0 mmHg RVOT VTI 0.163 m PV VTI 0.229 m RVOT Vmax 0.86 m/s
== END 2020-04-28 02:21 ==
PROVIDERS: PCP Family Medicine; Visit Provider Family Medicine
DX: R55 Syncope and collapse (principal); I49.1 Atrial premature depolarization; I49.3 Ventricular premature depolarization; I77.810 Thoracic aortic ectasia
CPT/HCPCS: 93306

== ENCOUNTER 2020-06-19 04:44 | Outpatient (CLI) | payer BC, SELFPAY ==
[2020-06-19 08:54] LABS: Ferritin 308 ng/mL (26-388)
== END 2020-06-19 05:04 ==
PROVIDERS: PCP Family Medicine; Visit Provider Nurse Practitioner
DX: M25.552 Pain in left hip (principal)
CPT/HCPCS: 36415; 82728

== ENCOUNTER 2021-06-01 02:25 | Outpatient (CLI) | payer BC, SELFPAY ==
[2021-06-01 10:36] LABS: Source Nasal/Nares
[2021-06-01 13:28] LABS: COVID-19 PCR Negative (Negative)
== END 2021-06-01 02:26 | disposition home or self-care (01) ==
PROVIDERS: PCP Family Medicine; Visit Provider Surgery
DX: Z20.822 Contact with and (suspected) exposure to COVID-19 (principal)
CPT/HCPCS: 87635

== ENCOUNTER 2021-06-03 11:01 | Day surgery (SDC) | payer BC, SELFPAY ==
[2021-06-03] VITALS (9 sets, daily range): BP systolic 112–154; BP diastolic 83–105; PULSE 67–88; RESP 11–19; TEMP 36–36.6; O2SAT 95–100; BMI 31.8
--- NOTE | 2021-06-03 06:55 | ROE_ITS ---
Date of service: 06/03/21 Time of Service: 12:55 Operative Note Operative Note DATE OF PROCEDURE: 06/03/21 PRE-OP DIAGNOSIS: Umbilical hernia POST-OP DIAGNOSIS: same PROCEDURE: Umbilical hernia repair with mesh SURGEON: Divina Dixon SLACKLINE OPERATOR: Celine Hawthorne ANESTHESIA TYPE: General LMA/ETT (José Luis Osborne CRNA) and Primary Nerve Block Refer to Anesthesia Record ESTIMATED BLOOD LOSS: 5 PATHOLOGY: none sent COMPLICATIONS: None Patient was transported to: same day Patient's condition: stable Implants: Ventralex ST Hernia Patch: LOT- [id number] 2022-06-28 Indications: Mr. Fernandez is a pleasant 50-year-old gentleman who is quite healthy and active who is here today to discuss an umbilical hernia repair. He has had the umbilical hernia for a little while but it has started to get larger and also start cause some pain especially when lifting. We discussed the procedure using a pamphlet and pictures. We reviewed complications. Risks, benefits and complications have been reviewed. Complications include but are not limited to bleeding, pain, infection, injury to underlying structures like bowel and adverse reaction to the medication. Questions were entertained and answered to their satisfaction and they wished to proceed. No guarantees were given or implied. Umbilical hernia repair with mesh with bilateral rectus muscle block for pain control Findings: 1.5 cm umbilical hernia Procedure Description: After informed consent was obtained the patient was taken to the operating room and placed in a supine position. Monitors and SCDs were applied and a timeout was done. The patient's name, date of , procedure type, procedure site, allergies to medications, preoperative antibiotic, and DVT prophylaxis were all reviewed. Fire risk was assessed. Next anesthesia did a bilateral rectus block under ultrasound guidance. Please see their separate dictation. Once anesthesia was done the abdomen was prepped and draped in a sterile surgical fashion. 0.5% Bupivacaine was injected into the dermis just under the umbilicus. An incision was made with a 10 blade under the umbilicus. Dissection was done with cautery through the subcutaneous tissues and through the umbilical stalk down to the fascia. The hernia defect was identified and measured 1.5 cm. The hernia sac was opened and the peritoneum was swept for adhesions. no adhesions were noted. A 4 cm round mesh was then placed under the peritoneum and secured in 4 quarters with 2-0 Proline. Once the mesh was secured the tissues were irrigated with some normal saline. No bleeding was identified. The fascia was closed over the mesh with 0 vicryl running suture. 2-0 Vicryl was used to secure the umbilicus down to the fascia. The dermis was re-approximated with a running 4-0 Vicryl. The skin was cleaned and dried and skin affix was applied. The patient was woken up and taken back to recovery in stable condition. There were no immediate complications. Sponge, instrument and needle counts were correct at the end of the case x2.
--- NOTE | 2021-06-03 06:58 | W.PM.DSUDISC ---
Discharge Plan Disposition Patient Disposition: HOME Condition: Good Discharge Details Reason For Visit: Umbilical hernia repair Attending Provider: Divina Dixon Primary Care Provider: Joseph Son Home Meds and New Rx's Prescriptions: Continued (DME) Aerochamber MV Spacer See Rx Instructions .ROUTE .MEDSUPPLY Qty: 1 RF: 0 albuterol sulfate [Ventolin HFA] 90 mcg/actuation HFA aerosol inhaler 2 puff IH Q4H PRN (Reason: shortness of breath or wheezing) Qty: 8.5 RF: 0 famotidine 40 mg tablet 20 mg PO BID RF: 0 Neupro 2 mg/24 hour patch 24 hour 3 mg transdermal DAILY RF: 0 doxepin 10 mg capsule 10 mg PO QHS RF: 0 gabapentin 400 mg capsule 1,200 mg PO BID RF: 0 finasteride 5 MG tablet 5 mg PO DAILY Qty: 90 RF: 4 tamsulosin [Flomax] 0.4 MG capsule 0.4 mg PO DAILY RF: 0 fluticasone propionate 16 GM spray,suspension 2 spry NS BID Qty: 3 RF: 12 budesonide 180 mcg/actuation aerosol powdr breath activated 1 inh inhalation BID Qty: 1 RF: 11 Flovent HFA 110 mcg/actuation HFA aerosol inhaler 1 puff inhalation BID Qty: 12 RF: 3 acetaminophen [Tylenol Extra Strength] 500 MG tablet 1,000 mg PO PRN PRNRF: 0 Discharge Instructions Additional Instructions: Activity at Home after surgery: 1. Make sure you walk outside at least 4 times per day 2. You should be able to climb a flight of stairs 3. No driving while in pain or taking pain medications 4. No strenuous activity or heavy lifting for 2 weeks (laparoscopic surgery) or 4 weeks (open surgery) Diet, Nutrition, & wound healin. Avoid alcohol until after you are recovered from your surgery 2. Make sure to eat plenty of lean protein (meat, fish, eggs, cottage cheese, beans) 3. Eat a variety of fruits and vegetables. Eat plenty of high fiber foods to avoid constipation. 4. Drink plenty of liquids to stay hydrated and avoid constipation Pain Medications: 1. Tylenol 650mg every 6 hours as needed and Ibuprofen 600 mg every 6 hours as needed. You may alternate between the 2 medications every 3 hours 2. If a narcotic has been prescribed take as directed only for breakthrough pain For Constipation: 1. Take Milk of Magnesia or MiraLax as needed for constipation Other: 1. You may shower daily. Do not scrub the incisions 2. Do not soak the incisions for 1 week 3. You may alternate ice and heat as needed for pain and swelling Wound Care: 1. Keep the incisions clean and dry Please call our office if you develop: 1. Fevers >101.5 2. Nausea or Vomiting 3. Worsening pain 4. Redness and thick discharge from the wounds If after hours please call the Hospital at and ask to speak to the on-call surgeon Referrals: Dviina Dixon MD [ [facility] STAFF PHYSICIAN] - 06/16/21 1:00 pm Activity:: as above Diet:: As Tolerated Discharge Orders Discharge Orders: Discharge Order (Routine); Ordered 06/03/21 Ordered By: Divina Dixon
--- NOTE | 2021-06-03 09:37 | ANES.PREOP_ITS ---
General Info Date of Service Date Performed: 06/03/21 Height: 5 ft 8 in Weight: 94.971 kg Body Mass Index (BMI): 31.8 Surgical Procedure: Operation Date: 06/03/21 11:55 Proposed Procedures Side Surgeon p Herniorrhaphy Umbilical Divina Dixon MD Meds Allergies and Home Medications Allergies Allergy/AdvReac Type Severity Reaction Status Date / Time Iodinated Contrast Media Allergy Intermediate Hives Verified 06/03/21 11:26 [Iodinated Contrast Media - IV Dye] Home Medication Medication Instructions Recorded acetaminophen [Tylenol Extra 1,000 mg PO PRN PRN 09/11/17 Strength] finasteride 5 mg PO DAILY #90 tab-cap 09/30/17 fluticasone propionate 2 spry NS BID #3 bottle 12/07/17 tamsulosin [Flomax] 0.4 mg PO DAILY 12/07/17 inhalational spacing device #1 each 10/10/19 albuterol sulfate 90 mcg/actuation 2 puff IH Q4H PRN #8.5 gm 04/16/20 aerosol inhaler budesonide 180 mcg/actuation 1 inh INHALATION BID #1 ea 02/11/21 breath activated powder inhaler fluticasone propionate 110 1 puff INHALATION BID #12 g 02/11/21 mcg/actuation HFA aerosol inhaler doxepin 10 mg capsule 10 mg PO QHS 05/11/21 famotidine 40 mg tablet 20 mg PO BID tab 05/11/21 gabapentin 400 mg capsule 1,200 mg PO BID cap 05/11/21 rotigotine 2 mg/24 hour 3 mg TRANSDERMAL DAILY ea 05/11/21 transdermal 24 hour patch Current Visit Medications: Current Medications Generic Name Dose Route Start Last Admin Trade Name Freq PRN Reason Stop Dose Admin Acetaminophen 1,000 mg 06/03/21 06:00 Acetaminophen 500 Mg Tab PO 06/03/21 16:00 PREOP SKYE Celecoxib 200 mg 06/03/21 06:00 Celecoxib 200 Mg Cap PO 06/03/21 16:00 PREOP SKYE Gabapentin 600 mg 06/03/21 06:00 Gabapentin 300 Mg Cap PO 06/03/21 16:00 PREOP SKYE Ringer's Solution 1,000 mls @ 80 mls/hr 06/03/21 06:00 IV 06/30/21 23:59 INFUSION [facility] Cefazolin Sodium/Dextrose 2 gm in 50 mls @ 100 mls/hr 06/03/21 06:00 Ancef Duplex IVPB 06/03/21 16:00 PREOP SKYE Ondansetron HCl 4 mg/ Sodium 52 mls @ 200 mls/hr 06/03/21 07:00 Chloride IVPB Q6H PRN PRN IV Miscellaneous Supplies 1 each 06/03/21 06:00 Iv Access IV 06/30/21 23:59 DIRECTED SKYE Oxycodone HCl 5 mg 06/03/21 07:00 Oxycodone 5 Mg Tab PO Q3H PRN PRN Pain Sodium Chloride 0 ml 06/03/21 06:00 Normal Saline Flush 10 Ml Syr IV 06/30/21 23:59 PRN PRN Sodium Chloride 0 ml 06/03/21 06:00 Normal Saline 10 Ml Vial IJ 06/30/21 23:59 DIRECTED PRN Sterile Water 0 ml 06/03/21 06:00 Water,Injection,Sterile 10 Ml Vial IJ 06/30/21 23:59 DIRECTED PRN PFSH Active Problems Active Problems: Problem Status Onset Code Restless leg syndrome G25.81 Obstructive sleep apnea syndrome ~07/11/20 G47.33 Umbilical hernia K42.9 Elevated blood pressure reading in office with diagnosis of hypertension I10 Syncope R55 Bronchospasm J98.01 Influenza J11.1 Ankle joint pain 11/07/12 M25.579 Depressive disorder F32.9 Irritable colon K58.9 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 Medical History Medical History Allergic rhinitis, unspecified (12/07/17) Asthma BPH w urinary obs/LUTS (09/30/17) Depression History of gastroesophageal reflux (GERD) Irritable bowel Myoclonus Obstructive sleep apnea syndrome (~07/11/20) MILD Post-traumatic arthritis of right ankle (10/03/12) Restless leg syndrome Surgical History Surgical History (Updated 06/03/21 @ 11:26 by Sandy Cortez) EGD - MAC (09/16/17) History of ankle surgery 06/03/21 right; remote injury with multiple surgies; most recent approximately 10 years ago per patient Tobacco Smoking/Tobacco Use Status: Never Alcohol Alcohol Intake: current Alcohol intake frequency: a few times a week Substance Use Substance use: Never Substance use type: does not use Vital Signs and Lab Results Lab Results Blood Type / Crossmatch: No Data to Display Complete Blood Count: No Data to Display Complete Metabolic Panel: No Data to Display Liver Function Panel: No Data to Display Coagulation Panel: No Data to Display Cardiac Panel: No Data to Display Arterial Blood Gas: No Data to Display Venous Blood Gas: No Data to Display Pancreas Panel: No Data to Display Thyroid Panel: No Data to Display Infectious Disease: Coronavirus (COVID-19)(PCR) Negative (Negative) 06/01/21 08:55 06/01/21 Coronavirus 2019 Source Nasal/Nares 06/01/21 08:55 06/01/21 Blood Cultures: No Data to Display Toxicology Panel: No Data to Display Imaging and Studies Imaging and Studies EKG Summary: 04/20: sinus rhythm. Stress Test Summary: 2015: no defects noted, LVEF 68%. Echocardiogram Summary: 04/2020: LVEF 60%, no sig valve lesions. Anesthesia Assessment and Plan Anesthesia History Personal History: No History of Anesthesia Complications Family History: No Family History of Anesthesia Complications Exercise Tolerance Exercise Tolerance: Metabolic Equivalents>4 Cardiac & Pulmonary Exam Cardiac Exam: Normal S1/S2 Heart Sounds Pulmonary Exam: Clear Bilateral Breath Sounds Airway Exam Known Difficult Airway: No Mallampati Class: 3 Mouth Opening: Narrow (< 3cm) Thyromental Distance: Greater than 3 cm Neck Range of Motion: Full ROM Neck Circumference: Normal Teeth Condition: Normal Dentition ASA Classification ASA Score: ASA 2 Emergency Case?: No NPO Status NPO Status: NPO Clears >2 hours, Solids >8 hours Anesthesia Plan Resuscitation Status: Full Code Anesthesia Technique: General Anesthesia Airway Planned: LMA Pain Management: Surgeon and patient request nerve block Monitors Used: Standard Monitors Preoperative Comments:: 50 yo male for umbilical hernia. sig PMHx: STEVEN, bronchospasm (albuterol/flovent), depression (TCA), GERD (famotadine, sleeps with bed on risers) never smoker, occ EtOH. Previous Anes: Mac 4 grade 1. Plan: GA/ETT due to questionably controlled GERD, rectus sheath block.
[2021-06-03] MEDS: Acetaminophen 500 MG TAB 1000 MG PO (11:45)
[2021-06-03] MEDS: Celecoxib 200 MG CAP PO (11:46)
[2021-06-03] MEDS: Gabapentin 300 MG CAP 600 MG PO (11:46)
[2021-06-03] MEDS: Lactated Ringers 1,000 ML 80 ML IV (12:00)
[2021-06-03] MEDS: ceFAZolin 2 GM/50 ML BAG IVPB (12:15)
[2021-06-03] MEDS: Bupivacaine 0.25% Pres-Free 30 ML VIAL (12:33)
--- NOTE | 2021-06-03 12:36 | W.ANESNERVE ---
Nerve Block Single Injection Procedure Date and Time Date Performed: 06/03/21 Procedure Start: 12:18 Location Where Procedure Performed Procedure Location: Operating Room Procedure Stop: 12:28 Reason Performed: Postoperative Analgesia Requesting Provider: Divina Dixon Timeout Performed Timeout Performed: Yes Monitoring Used ECG, Blood Pressure, SpO2 and ETCO2 Sterility Sterility: Hand Hygiene, Surgical Cap, Surgical Mask, Sterile Gloves and Chlorhexidine Sedation Given During Procedure Sedation Given (Indicate Dose Given): No Sedation given Patient Mental Status Patient Mental Status: Performed under general anesthesia Nerve Block 1st Nerve Block: Laterality: Bilateral Block Type: Rectus Sheath (Bilateral) Needle / Catheter Used: 100mm SonoPlex II Local Anesthetic Bolus (Indicate Dose Given): Injected in 3-5ml increments after negative blood aspiration, Half of Total block solution given into each side, Bupivacaine 0.5% Dose:: 20 mL and Exparel Dose:: 20 mL Additives (Indicate Dose Given): None Ultrasound: Sterile probe cover and gel used Ultrasound Image Saved?: Yes Nerve Stimulator: Not Used Paresthesia: None Procedure Tolerated: No Complications Procedure Outcome: Successful Performed By: José Luis Osborne
--- NOTE | 2021-06-03 13:19 | W.ANESPOSTOP ---
Postoperative Evaluation Date, Time and Location Date Performed: 06/03/21 Time Performed: 13:19 Patient Location: PACU Vital Signs Most Recent Imported Vital Signs: Most Recent Vital Signs Temp Pulse Resp BP Pulse Ox 36.2 C L 85 18 129/85 98 06/03/21 13:08 06/03/21 13:08 06/03/21 13:08 06/03/21 13:08 06/03/21 13:08 Pain Score Most Recent Pain Score: Most Recent Pain Score Pain Level 0 06/03/21 13:08 Assessment Mental Status: Arousable with meaningful communication Airway and Respiratory Function: Patent airway with normal (patient baseline) respiratory exam Cardiovascular Function: Hemodynamically Stable Hydration Status: Adequately Hydrated Nausea & Vomiting: No Nausea or Vomiting Pain: Pain is tolerable per patient Peripheral Nerve Block: Regional nerve block not resolved at time of post operative discharge
== END 2021-06-03 15:20 | disposition home or self-care (01) ==
LOC: SUR 11:01
PROVIDERS: PCP Family Medicine; Visit Provider Surgery
PROC: (CPT 49585; principal; 2021-06-03 11:45)
DX: K42.9 Umbilical hernia without obstruction or gangrene (principal); G47.33 Obstructive sleep apnea (adult) (pediatric); N40.1 Benign prostatic hyperplasia with lower urinary tract symptoms; J45.909 Unspecified asthma, uncomplicated
CPT/HCPCS: 49585; 76942; C1781; J0690; J1100; J1885; J2001; J2405

== ENCOUNTER 2021-06-16 10:55 | Outpatient (CLI) | payer BC, SELFPAY ==
[2021-06-17 13:55] LABS: PSA, Ultrasensitive 1.9 ng/mL (<= 3.5)
== END 2021-06-16 10:56 | disposition home or self-care (01) ==
LOC: LBO 10:56
PROVIDERS: PCP Family Medicine; Visit Provider Urology
DX: R97.20 Elevated prostate specific antigen [PSA] (principal)
CPT/HCPCS: 36415; 84153

== ENCOUNTER 2021-07-21 01:14 | Outpatient (CLI) | payer BC, SELFPAY ==
--- NOTE | 2021-07-21 08:02 | DI.RAD_ITS ---
Exam(s) XR LUMBAR SPINE COMPLETE EXAM: XR LUMBAR SPINE COMPLETE CLINICAL HISTORY: chronic low back pain, no trauma, radiates to hip,M54.50. TECHNIQUE: 2D digital imaging was performed of the lumbar spine. Five images were obtained. AP, la teral, right oblique, left oblique and L5-S1 spot views were obtained. COMPARISON: CT ABD PELVIS WITH CONTRAST from 09/11/2017 CT ABD PELVIS WITH CONTRAST from 09/11/2017 FINDINGS: BONES: No fracture or destructive lesion. Vertebral bodies are unremarkable. No facet hypertrophy julia ntified. There is a stable anterior wedging deformity at T12. Small endplate osteophytes are seen fr om L2-3 through L4-L5. There is a transitional lumbosacral vertebral body with spondylolysis bilater ally. No spondylolisthesis. This is stable. DISKS: Intervertebral disc spaces are maintained. ALIGNMENT: Lumbar spinal alignment is within normal limits. No spondylolysis or spondylolisthesis. SOFT TISSUE: Normal. IMPRESSION: Mild degenerative changes in the lumbar spine. DATA REPOSITORY: RADIATION DOSE DELIVERED:
== END 2021-07-21 01:34 ==
PROVIDERS: PCP Family Medicine; Visit Provider Family Medicine
DX: G89.29 Other chronic pain (principal); M54.50 Low back pain, unspecified; M47.816 Spondylosis without myelopathy or radiculopathy, lumbar region
CPT/HCPCS: 72110

== ENCOUNTER 2021-11-06 02:32 | Outpatient (CLI) | payer BC, SELFPAY ==
[2021-11-06 07:19] LABS: HCT 47.3 % (40.0-50.0); HGB 15.6 g/dL (13.5-17.5); MCH 28.9 pg (27.0-33.0); MCV 87.6 fL (80-95); MPV 9.8 fL (8.0-11.0); Platelet Count 222 10^3/uL (130-400); RDW 13.6 % (11.8-14.1); RDW-SD 43.7 fL; WBC 5.89 10^3/uL (4.4-10.8)
[2021-11-06 08:36] LABS: ALT 49 U/L (16-63); AST 23 U/L (15-37); Albumin 3.9 g/dL (3.4-5.0); Alkaline Phosphatase 49 U/L (46-116); Anion Gap 9.7 mmol/L (3-11); BUN 16 mg/dL (7-18); Bilirubin, Total 0.5 mg/dL (0.2-1.0); CO2 26.3 mmol/L (21.0-32.0); Calcium 8.7 mg/dL (8.5-10.1); Calculated LDL 120 mg/dL (<100); Chloride 105 mmol/L (98-107); Cholesterol 222 mg/dL (<200); Glucose 97 mg/dL (74-106); HDL Cholesterol 49 mg/dL (40-60); Potassium 4.1 mmol/L (3.5-5.1); Sodium 141 mmol/L (136-145); TSH (W/Ref FT4) 2.82 uIU/mL (0.36-3.74); Triglyceride 266 mg/dL (<150); Vitamin B12 263 pg/mL (193-986)
[2021-11-06 08:49] LABS: Lipase 97 U/L (73-393)
[2021-11-08 10:45] LABS: HIV-1/2 Ag & Ab Screen Negative (Negative)
[2021-11-09 10:48] LABS: Hepatitis C Ab w Rflx HCV PCR Negative (Negative)
[2021-11-09 13:28] LABS: IgA 103 mg/dL (85-499); Interpretation (See Note); Tissue Transglutaminase IgA <1.2 U/mL (<4.0)
== END 2021-11-06 02:33 | disposition home or self-care (01) ==
LOC: LBO 02:32
PROVIDERS: PCP Nurse Practitioner Family; Visit Provider Family Medicine
DX: E78.5 Hyperlipidemia, unspecified (principal); K58.9 Irritable bowel syndrome, unspecified; R10.9 Unspecified abdominal pain; R53.83 Other fatigue; Z11.59 Encounter for screening for other viral diseases; I10 Essential (primary) hypertension; Z11.4 Encounter for screening for human immunodeficiency virus [HIV]
CPT/HCPCS: 36415; 80053; 80061; 82784; 83516; 83690; 85027; 86803; 87389; 82607; 84443

== ENCOUNTER → 2022-01-01 00:33 | Outpatient (CLI) | payer BC, SELFPAY ==
--- OUTSIDE RECORDS SUMMARY | 2022-01-01 00:35 | XMS_ITS ---
:1970 Author Care Team Providers Name Role Phone [facility] Primary Care Provider [phone] [facility] Primary Care Provider [phone] Allergies Code Code System Name Reaction Severity Status Onset Iodinated Contrast Media ? ? Activ e ? Medications Name Status Start Date Stop Date ? ? Jeffry Aerosol Divide Enhancer spacer Completed ? 06/17/2020 acetaminophen Active ? Not available albuterol sulf 90 mcg/actuation breath activated powde r inhaler,sensor Completed ? 06/17/2020 Inhale 2 puffs every 4 hours by inhalation route. doxepin 10 mg capsule Active ? Not availa ble Take 1 capsule every day by oral route at bedtime for 30 days. famotidine 40 mg tablet Active ? Not avai lable Take 1 tablet every day by oral route. finasteride 5 mg tablet Active ? Not avai lable Take 1 tablet every day by oral route. fluticasone 55 mcg-salmeterol 14 mcg/actuation breath activated powder Completed ? 06/17/2020 Inhale 2 puffs twice a day by inhalation route. gabapentin 300 mg capsule Active ? Not av ailable Take 2 capsules by mouth in the evening , and take 2 capsules by mouth at bedtime. mirabegron ER 25 mg tablet,extended release 24 hr Completed ? 06/17/2020 Take 1 tablet every day by oral route. Myrbetriq 50 mg tablet,extended release Active ? Not available Take 1 tablet every day by oral route. Neupro 1 mg/24 hour transdermal 24 hour patch Completed ? 12/25/2020 Apply 1 patch every day by transdermal route for 7 days. Neupro 2 mg/24 hour transdermal 24 hour patch Completed ? 09/29/2021 Apply 1 patch every day by transdermal route for 30 days. Neupro 3 mg/24 hour transdermal 24 hour patch Active ? Not available APPLY 1 PATCH TOPICALLY TO THE SKIN EVERY DAY AT BEDTIME Pulmicort Flexhaler 180 mcg/actuation breath activated Active ? Not available Inhale 1 puff twice a day by inhalation route. ropinirole 1 mg tablet Completed ? take 1 PO 2-3 hours before bedtime tamsulosin 0.4 mg capsule Active ? Not av ailable Take 1 capsule every day by oral route. zolpidem 5 mg tablet Completed ? 07/23/2020 take 1-2 PO night of sleep study if needed Problems Name Status Onset Date Source ? Depressive Disorder Active 05/21/2020 ? Irritable Bowel Syndrome Active 05/21/2020 ? Dizziness Active 05/21/2020 ? Dyspnea Active 05/21/2020 ? Apnea Active 06/16/2020 ? Insomnia Active 06/17/2020 ? Restless Legs Active 06/17/2020 ? Obstructive Sleep Apnea Syndrome Active ? ? Procedures None recorded. Results Lab Results None recorded. Past Encounters 07/07/2021 Obstructive Sleep Apnea Syndrome; Restle ss Legs Reyna Cardona INSTRUCTIONAL DESIGNER: [address] [place] [phone], Ph. 03/26/2021 Obstructive Sleep Apnea Syndrome; Restle ss Legs; Insomnia; Cramp in Lower Limb Reyna Cardona INSTRUCTIONAL DESIGNER: [address] [place] [phone], Ph. 12/25/2020 Obstructive Sleep Apnea Syndrome; Restle ss Legs Reyna Cardona INSTRUCTIONAL DESIGNER: [address] [place] [phone], Ph. 10/01/2020 Obstructive Sleep Apnea Syndrome; Restle ss Legs Reyna Cardona INSTRUCTIONAL DESIGNER: [address] [place] [phone], Ph. 07/23/2020 Obstructive Sleep Apnea Syndrome; Restle ss Legs Reyna Cardona INSTRUCTIONAL DESIGNER: [address] [place] [phone], Ph. Social History Tobacco Smoking Status Never Smoker Vaccine List None recorded. Plan of Care Reminders Provider Appointments None recorded. ? ? Lab None recorded. ? ? Referral None recorded. ? ? Procedures None recorded. ? ? Surgeries None recorded. ? ? Imaging None recorded. ? ? Vitals 07/07/2021 10:15AM Office 30 Height Weight BMI 172.72 cm 92.99 kg 31.2 kg/m2 03/26/2021 02:30PM Office 30 Height Weight BMI 172.69 cm 88.9 kg 29.8 kg/m2 12/25/2020 09:30AM Office 30 Height Weight BMI 172.72 cm 88.9 kg 29.8 kg/m2 10/01/2020 03:00PM Office 30 Height Weight BMI 172.72 cm 90.72 kg 30.4 kg/m2 07/23/2020 04:00PM Office 30 Height Weight BMI 172.72 cm 90.72 kg 30.4 kg/m2 06/17/2020 10:30AM New Patient 45 Height Weight BMI Blood Pressure 172.72 cm 90.72 kg 30.4 kg/m2 161/97 mm[Hg]
--- NOTE | 2022-01-01 08:05 | DI.MRI_ITS ---
Exam(s) MR BRAIN WO EXAM: MR BRAIN WO CLINICAL HISTORY: memory loss,r41.3 TECHNIQUE: Multiplanar multisequence MRI of the brain was performed. COMPARISON: MR MRI - BRAIN WO CONTRAST from 03/28/2018 FINDINGS: VENTRICLES AND EXTRA AXIAL SPACES: Normal in size and morphology for the patient's age. MIDLINE SHIFT: None. CEREBRAL PARENCHYMA: No focus of restricted diffusion to suggest acute infarct. No space-occupying le rex identified. HEMORRHAGE: None. BRAINSTEM/CEREBELLUM: Normal. CALVARIUM: Normal. VISUALIZED PARANASAL SINUSES/MASTOIDS:Clear. LITTLE SHELL TRIBE OF LIMON: Normal flow void. PITUITARY GLAND: Note is again made of a partially empty sella. OTHER FINDINGS: None. IMPRESSION: Unremarkable MRI of the brain. DATA REPOSITORY:
== END ==
PROVIDERS: PCP Nurse Practitioner Family; Visit Provider Psychiatry & Neurology Neurology
DX: R41.3 Other amnesia (principal)
CPT/HCPCS: 70551

== ENCOUNTER 2023-06-10 07:18 | Day surgery (SDC) | payer BC, SELFPAY ==
--- NOTE | 2023-06-09 16:01 | W.COLOREPORT ---
Date of service: 06/10/23 Time of Service: 09:01 Colonoscopy Report Date of procedure: 06/10/23 Pre-op diagnosis general: hx of HP polyps Post-op diagnosis procedure note: same Surgeon: Lisette Ocampo Anesthesia Type: General:No Airway Estimated blood loss (mL): 0 Pathology: none sent Complications: None Disposition: no change Prep: Miralax/Dulcolax Retraction Time: 17 Procedure Description: After informed consent was obtained the patient was taken to the procedure room and placed in a left decubitous position. Monitors were applied and a time out was done. The patients name, date of , procedure, allergies to medications and metal in their body was reviewed. The patient was then sedated. Once sedated and comfortable a rectal exam was done. External exam was normal. Internal exam revealed a normal sphincter tone and no palpable masses. The prostate normal. The scope was then introduced and retrofelexed. No internal hemorrhoids were identified. The scope was then advanced to the cecum without difficulty. The TI and appendiceal orifice were identified. The prep was BBPS 2 in all segments for total of 6. The scope was then slowly retracted over 17 minutes back into the rectum. There are no polyps, AVMs, or diverticula visualized today. The scope was removed and the patient was woken up and taken back to Same day surgery in stable condition. The patient tolerated the procedure well and there were no immediate complications. Follow up: The patient should follow up in 10 years unless they develop changes in bowel habits or other new gastrointestinal complaints.
--- NOTE | 2023-06-09 16:02 | PDOC.DSDIS_ITS ---
Date of service: 06/10/23 Time of Service: 09:04 Discharge Plan Disposition Patient Disposition: Home Condition: Good Discharge Details Reason For Visit: colon scope Attending Provider: Lisette Ocampo Primary Care Provider: Srinath Lemos Home Meds and New Rx's Prescriptions: Continued famotidine 40 mg tablet 20 mg PO BID fluticasone propionate 50 mcg/actuation spray,suspension 2 spray NS BID PRN mecobalamin (vitamin B12) 1,000 mcg tablet,disintegrating 1,000 mcg sublingual DAILY Rx Instructions: place tablet under tongue and allow to dissolve for at least30 secs before swallowing Probiotic Digest Supp (4-strn) 11 billion cell -15 mg capsule 1 cap PO DAILY tramadol 100 mg tablet 100 mg PO QHS PRN doxepin 50 mg capsule 50 mg PO QHS Qty: 1 0RF albuterol sulfate [Ventolin HFA] 90 mcg/actuation HFA aerosol inhaler 2 puff inhalation Q6H PRN carbidopa-levodopa 25-100 mg tablet 2 tab PO DAILY Qty: 180 3RF Rx Instructions: Daily at 4pm carbidopa-levodopa 25-100 mg tablet extended release 2 tab PO QHS Qty: 180 3RF carbidopa-levodopa 25-250 mg tablet 1 tab PO QID Qty: 540 3RF Rx Instructions: Take at 6am, 11am, 4pm, and 9pm finasteride 5 MG tablet 5 mg PO DAILY Qty: 90 4RF tamsulosin [Flomax] 0.4 mg capsule 0.4 mg PO BID gabapentin 600 mg tablet 1,200 mg PO BID Qty: 360 3RF Rx Instructions: Take at 5pm and 9pm Discontinued bisacodyl [Dulcolax (bisacodyl)] 5 mg tablet,delayed release (DR/EC) 5 mg PO ONCE Qty: 4 0RF Rx Instructions: Take per colonoscopy instructions provided by ordering providers office polyethylene glycol 3350 17 gram/dose powder See Rx Instructions .ROUTE .COMPLEX Qty: 238 0RF Dose Instruction: TAKE 17GRAMS PER COLONOSCOPY INSTRUCTIONS PROVIDED BY ORDERING PROVIDERS OFFICE Rx Instructions: TAKE 17GRAMS PER COLONOSCOPY INSTRUCTIONS PROVIDED BY ORDERING PROVIDERS OFFICE Discharge Instructions Additional Instructions: DSU Colonoscopy Post- Op Instructions Instructions for Everyone who is given Anesthesia: For your safety, please do the following for the next twenty-four (24) hours: *Do Not operate a motor vehicle (car, truck, motorcycle, etc.) *Do Not drink alcoholic beverages or use any recreational drugs for the first 24 hours or while taking pain medications. The medications in your body may have a reaction that can be dangerous. *Do Not make any important decisions or sign any important papers. Findings:normal Follow up: Repeat in 10 years time 1. No lifting over 20 pounds or strenuous activity for the first 24 hours after your procedure. After 24 hours there are no restrictions on your activity but you may feel fatigued for a few days. 2. After you arrive home you may have a light meal and return to your normal diet as you can tolerate it without feeling sick to your stomach. 3. You may have a bloated, gaseous feeling in your belly (abdomen) after a co lonoscopy. Passing gas and belching will help. Walking or lying down on your left side with your knees flexed may relieve the discomfort. Call the office at [phone] (Office) or [phone] (Hospital) right away if you notice any of the following: a.Vomiting of blood or ?coffee ground stools?. b.Rectal bleeding 1Tbsp, blood clots or continuous bleeding. c.Severe belly (abdominal) pain. d.A hard distended belly (abdomen) and an inability to pass gas. 4. Please don?t expect to have a normal BM (bowel movement) for 2-3 days after your procedure. 5. If there are questions regarding the findings of your procedure, please contact your doctor 6. If you are unable to contact your doctor with a problem, contact the hospital at [phone]. 7. Continue all your regular medications unless directed otherwise. I understand the above instructions and have no questions. Signature of Patient or Adult Escort Name of Responsible Adult Escort Signature of Nurse Date/Time Activity:: See above Diet:: See above Discharge Orders Discharge Orders: Discharge Order (Routine); Ordered 06/10/23 Ordered By: Lisette Ocampo DS: Diagnosis Discharge Diagnosis (1) Hx of colonic polyps: Status: Acute Asessment and Plan: The patient is seen and examined after their colonoscopy.? The patient has been able to pass gas.? They are not having abdominal pain.? They have been able to tolerate liquids and a snack.? They do not have any nausea or vomiting.? They are not having any chest pain or shortness of breath.??? They are not having any rectal bleeding. Their vital signs have been stable-see nursing notes. We discussed findings during their colonoscopy, and any biopsies that were done/polyps that were removed. The patient will be sent a letter with any biopsy results, and when to repeat the colonoscopy.-see discharge instructions. Patient was given explicit instructions to follow-up regarding colonoscopy-refer to discharge instructions.? We reviewed resumption of medications. Patient verbalized understanding and discharged in stable and satisfactory condition- See nursing notes. (2) History of gastroesophageal reflux (GERD): Status: Acute (3) Constipation: Status: Acute (4) Parkinsonism: Status: Acute (5) Hyperlipidemia: Status: Acute (6) Elevated blood pressure reading without diagnosis of hypertension: Status: Acute (7) Chronic low back pain: Status: Acute (8) Asthma: Status: Chronic (9) Irritable bowel syndrome: Status: Chronic (10) Benign prostatic hyperplasia: Status: Chronic (11) Obstructive sleep apnea: Status: Chronic (12) Functional dyspepsia: Status: Acute (13) Dyssynergic constipation: Status: Acute
--- NOTE | 2023-06-10 07:44 | W.ANESPRE ---
General Info Date of Service Date Performed: 06/10/23 Height: 5 ft 8 in Weight: 98.033 kg Body Mass Index (BMI): 32.8 Surgical Procedure: Operation Date: 06/10/23 08:20 Proposed Procedure Side Surgeon anthony Ocampo, DO Meds Allergies and Home Medications Allergies Allergy/AdvReac Type Severity Reaction Status Date / Time Iodinated Contrast Media Allergy Intermediate Hives Verified 06/10/23 07:44 [Iodinated Contrast Media - IV Dye] Home Medication Medication Instructions Recorded finasteride 5 mg tablet 5 mg PO DAILY #90 tab-caps 09/30/17 famotidine 40 mg tablet 20 mg PO BID 05/11/21 fluticasone propionate 50 2 spray NS BID PRN 02/17/22 mcg/actuation nasal spray,suspension L.paracasei,rhamnosus-B.animalis 1 cap PO DAILY 03/29/22 11 billion cell-vit C 15 mg capsule (Probiotic Digestive Support (4-strain)) mecobalamin (vitamin B12) 1,000 1,000 mcg sublingual DAILY 03/29/22 mcg disintegrating tablet,sublingual tamsulosin 0.4 mg capsule (Flomax) 0.4 mg PO BID 03/29/22 doxepin 50 mg capsule 50 mg PO QHS #1 cap 08/05/22 albuterol sulfate 90 mcg/actuation 2 puff inhalation Q6H PRN 11/04/22 aerosol inhaler (Ventolin HFA) gabapentin 600 mg tablet 1,200 mg (2 x 600 mg) PO BID #360 04/26/23 tabs carbidopa 25 mg-levodopa 100 mg 2 tab PO DAILY #180 tabs 05/23/23 tablet carbidopa 25 mg-levodopa 250 mg 1 tab PO QID #540 tabs 05/23/23 tablet carbidopa ER 25 mg-levodopa 100 mg 2 tab PO QHS #180 tabs 05/23/23 tablet,extended release tramadol 100 mg tablet 100 mg PO QHS PRN 05/30/23 Current Visit Medications: Current Medications Generic Name Dose Route Start Last Admin Trade Name Freq PRN Reason Stop Dose Admin Hyoscyamine Sulfate 0.125 mg 06/10/23 11:34 Hyoscyamine 0.125 Mg Sl/Oral/Chew SL 07/10/23 11:33 DIRECTED PRN Ringer's Solution 1,000 mls @ 80 mls/hr 06/10/23 06:00 IV 07/09/23 23:59 INFUSION REPLACED BY [facility] IV Miscellaneous Supplies 1 each 06/10/23 06:00 Iv Access IV 07/09/23 23:59 DIRECTED SKYE Ondansetron HCl 4 mg 06/10/23 11:34 Ondansetron 4 Mg/2 Ml Vial IVP 07/10/23 11:33 Q4H PRN PRN Nausea / Vomiting Sodium Chloride 0 ml 06/10/23 06:00 Normal Saline Flush 10 Ml Syr IV 07/09/23 23:59 PRN PRN Sodium Chloride 0 ml 06/10/23 06:00 Normal Saline 10 Ml Vial IJ 07/09/23 23:59 DIRECTED PRN Sterile Water 0 ml 06/10/23 06:00 Water,Injection,Sterile 10 Ml Vial IJ 07/09/23 23:59 DIRECTED PRN PFSH Active Problems Active Problems: Problem Status Onset Code Hx of colonic polyps Z86.010 History of gastroesophageal reflux (GERD) Anxiety F41.9 Constipation K59.00 Memory loss R41.3 Paresthesia of hand, bilateral R20.2 Parkinsonism G20 Hyperlipidemia E78.5 Elevated blood pressure reading without diagnosis of hypertension R03.0 Chronic low back pain M54.50, G89.29 Essential hypertension I10 Asthma J45.909 Irritable bowel syndrome K58.9 Depression F32.A Benign prostatic hyperplasia N40.0 Allergic rhinitis J30.9 Restless leg syndrome G25.81 Obstructive sleep apnea G47.33 Medical History Medical History Umbilical hernia Syncope Ankle joint pain (11/07/12) Post-traumatic arthritis of right ankle (10/03/12) Myoclonus Surgical History Surgical History S/P hernia repair (~06/03/21) umbilical hernia History of ankle surgery 06/03/21 right; remote injury with multiple surgies; most recent approximately 10 years ago per patient EGD - MAC (09/16/17) Tobacco Smoking/Tobacco Use Status: Never Passive smoking exposure: Yes Second hand exposure: No Alcohol Alcohol Intake: never Substance Use Substance use: Never Substance use type: does not use Vital Signs and Lab Results Lab Results Blood Type / Crossmatch: No Data to Display Complete Blood Count: No Data to Display Complete Metabolic Panel: No Data to Display Liver Function Panel: No Data to Display Coagulation Panel: No Data to Display Cardiac Panel: No Data to Display Arterial Blood Gas: No Data to Display Venous Blood Gas: No Data to Display Pancreas Panel: No Data to Display Thyroid Panel: No Data to Display Infectious Disease: No Data to Display Blood Cultures: No Data to Display Toxicology Panel: No Data to Display Imaging and Studies Imaging and Studies Study information below may be from another EMR and interpreted by another provider. Please see original notes in EMR for more complete details. EKG Summary: 04/20: sinus rhythm. Stress Test Summary: 2016: no defects noted, LVEF 68%. Echocardiogram Summary: 04/2020: LVEF 60%, no sig valve lesions. Anesthesia Assessment and Plan Anesthesia History Personal History: No History of Anesthesia Complications Family History: No Family History of Anesthesia Complications Exercise Tolerance Exercise Tolerance: Metabolic Equivalents>4 Pertinent Negatives Pertinent Negatives: No Major Cardiovascular Symptoms or Complaints, No Major Pulmonary Symptoms or Complaints and No History of CVA/TIA Cardiac & Pulmonary Exam Cardiac Exam: Normal S1/S2 Heart Sounds Pulmonary Exam: Clear Bilateral Breath Sounds Implantable Cardiac Device Does patient have a Pacemaker or an ICD?: No Airway Exam Known Difficult Airway: No Mallampati Class: 3 Mouth Opening: Narrow (< 3cm) Thyromental Distance: Greater than 3 cm Neck Range of Motion: Full ROM Neck Circumference: Normal Teeth Condition: Normal Dentition ASA Classification ASA Score: ASA 3 Emergency Case?: No NPO Status NPO Status: NPO Clears >2 hours, Solids >8 hours Anesthesia Plan Resuscitation Status: Full Code Anesthesia Technique: General Anesthesia Airway Planned: Natural Airway Monitors Used: Standard Monitors Preoperative Comments:: 52 yo male for screening colonoscopy. sig PMHx: STEVEN, bronchospasm (albuterol/flovent), depression (TCA), GERD (famotadine, sleeps with bed on risers) never smoker, occ EtOH, Parkinson's (Carbidopa-Levodopa). Previous Anes: Mac 4 grade 1. Plan: GA/ETT due to questionably controlled GERD, rectus sheath block.
[2023-06-10 07:48] VITALS: BMI 32.8
[2023-06-10 07:52] VITALS: BP 123/94; PULSE 102; RESP 18; TEMP 36.4; O2SAT 93
[2023-06-10] MEDS: Lactated Ringers 1,000 ML 80 ML IV (08:05)
[2023-06-10 08:59] VITALS: BP 107/79; PULSE 87; RESP 16; TEMP 36.5; O2SAT 96
[2023-06-10 09:29] VITALS: BP 109/80; PULSE 78; RESP 18; TEMP 36.5; O2SAT 96
--- NOTE | 2023-06-10 09:35 | W.ANESPOSTOP ---
Postoperative Evaluation Date, Time and Location Date Performed: 06/10/23 Time Performed: : Patient Location: Day Surgery Unit Vital Signs Most Recent Imported Vital Signs: Most Recent Vital Signs Temp Pulse Resp BP Pulse Ox 36.5 C 78 18 109/80 96 06/10/23 09:29 06/10/23 09:29 06/10/23 09:29 06/10/23 09:29 06/10/23 09:29 Pain Score Most Recent Pain Score: Most Recent Pain Score Pain Level 0 06/10/23 09:29 Assessment Mental Status: Arousable with meaningful communication Airway and Respiratory Function: Patent airway with normal (patient baseline) respiratory exam Cardiovascular Function: Hemodynamically Stable Hydration Status: Adequately Hydrated Nausea & Vomiting: No Nausea or Vomiting Pain: Pt. Denies Any Pain Peripheral Nerve Block: Patient did not receive a nerve block
== END 2023-06-10 09:50 | disposition home or self-care (01) ==
LOC: SUR 07:18
PROVIDERS: PCP Nurse Practitioner Family; Visit Provider Surgery
PROC: 0DJD8ZZ Inspection of Lower Intestinal Tract, Via Natural or Artificial Opening Endoscopic (ICD-10-PCS; CPT 45378; principal; 2023-06-10 08:15)
DX: Z12.11 Encounter for screening for malignant neoplasm of colon (principal); Z86.010 Personal history of colon polyps; G47.33 Obstructive sleep apnea (adult) (pediatric); I10 Essential (primary) hypertension; G20.A1 Parkinson's disease without dyskinesia, without mention of fluctuations
CPT/HCPCS: 45378; J2001

== ENCOUNTER 2023-08-24 09:37 | Outpatient (CLI) | payer BC, SELFPAY ==
[2023-08-26 12:09] LABS: PSA, Ultrasensitive 1.2 ng/mL (<= 3.5)
== END 2023-08-24 09:38 | disposition home or self-care (01) ==
LOC: LOS 09:38
PROVIDERS: PCP Nurse Practitioner Family; Visit Provider Urology
DX: R97.20 Elevated prostate specific antigen [PSA] (principal)
CPT/HCPCS: 36415; 84153

== ENCOUNTER 2023-11-08 04:49 | Outpatient (CLI) | payer BC, SELFPAY ==
[2023-11-08 12:52] LABS: Calculated LDL 108 mg/dL (<100); Cholesterol 208 mg/dL (<200); Estimated GFR 89.44 (mL/min/1.73m2); HDL Cholesterol 41 mg/dL (40-60); Triglyceride 296 mg/dL (<150)
== END 2023-11-08 04:50 | disposition home or self-care (01) ==
LOC: LOS 04:49
PROVIDERS: PCP Nurse Practitioner Family; Visit Provider Nurse Practitioner Family
DX: I10 Essential (primary) hypertension (principal); E78.5 Hyperlipidemia, unspecified
CPT/HCPCS: 36415; 80061; 82565

== ENCOUNTER 2024-02-03 15:32 | Outpatient (REF) | payer BC, SELFPAY ==
[2024-02-03 13:51] LABS: *AMPHETAMINES SCREEN URINE Negative (Negative); *BARBITURATES SCREEN URINE Negative (Negative); *BENZODIAZEPINES SCREEN URINE Negative (Negative); Cannabinoids THC Negative (Negative); Cocaine Screen,Urine Negative (Negative); METHADONE URINE SCREEN Negative (Negative); OPIATES URINE SCREEN Negative (Negative)
[2024-02-03 13:56] LABS: Tricyclic Antidepressants Negative (Negative)
[2024-02-15 15:36] LABS: O-desmethyltramadol 8505 ng/mL (Cutoff:25); Tramadol 6433 ng/mL (Cutoff:25)
== END 2024-02-03 15:33 | disposition home or self-care (01) ==
LOC: LBN 15:32
PROVIDERS: PCP Nurse Practitioner Family; Visit Provider Nurse Practitioner Family
DX: G89.4 Chronic pain syndrome (principal)
CPT/HCPCS: 80307; 80373

== ENCOUNTER 2024-12-06 01:47 | Outpatient (CLI) | payer BC, SELFPAY ==
[2024-12-06 12:42] LABS: Hemoglobin A1C 5.3 % (<5.7)
[2024-12-06 12:52] LABS: Calculated LDL 147 mg/dL (<100); Cholesterol 260 mg/dL (<200); HDL Cholesterol 44 mg/dL (>or=40); Triglyceride 345 mg/dL (<150)
[2024-12-06 18:19] LABS: PSA, Screening 4.6 ng/mL (<=3.5)
== END 2024-12-06 01:48 | disposition home or self-care (01) ==
PROVIDERS: PCP Nurse Practitioner Family; Visit Provider Nurse Practitioner Family
DX: Z13.1 Encounter for screening for diabetes mellitus (principal); Z12.5 Encounter for screening for malignant neoplasm of prostate; Z13.220 Encounter for screening for lipoid disorders
CPT/HCPCS: 36415; 80061; 84153; 83036